=== PATIENT | male | born 1940 | race Hispanic/Latino ===

== ENCOUNTER 2016-09-02 07:46 | Day surgery (SDC) | payer MEDICARE ==
--- NOTE | 2016-09-01 10:35 | Admit Criteria Form ---
Admission Criteria Documentation: AMBULATORY SURGERY EXCEPTION CRITERIA Ambulatory Surgery Exception Criteria ( Place 'X' for any and all applicable criteria): Surgery or procedure performed on ambulatory basis may require inpatient stay for[A] ANY ONE of the following(1)(2)(3)(4)(5)(6)(7)(8)(9): [X] I. A preoperative situation, condition, or finding that warrants inpatient stay as indicated by ANY ONE of the following: [] a) Inpatient care needed because of severity of a disease or condition rather than the surgery (eg, severe cardiac or respiratory disease, severe infection) (15) (16 ) (17) (18) [] b) Emergent procedure (eg, angioplasty for acute ischemia)(19) [] c) Complex surgical approach or situation as indicated by ANY ONE of the following(3): [] i) Open approach needed instead of usual endoscopic, transcatheter, or other less invasive procedure [] ii) Difficult approach because of previous operation [] iii) Airway monitoring required after open neck procedures(20)(21) [] iv) Large mass requiring unusually extensive dissection [] v) Additional complicating feature requiring inpatient care (eg, drain management)(22(23): [X] d) Major surgery in a pt with high anesthetic risk as indicated by ANY ONE of the following (2)(3)(5)(7)(8): [X] i) ASA risk class III or higher (severe systemic disease impairing function) [D] [] ii) Advanced age (eg, older than 85 years)(14)(24) [] iii) Symptomatic heart failure(25) [] iv) Symptomatic asthma or COPD(8)(21) [] v) Morbid obesity with hemodynamic or respiratory problems(20)( 21)(26)(27) [] vi) Obstructive sleep apnea(20)(21) [] vii) Former premature infants who are younger than 60 weeks [] viii) High risk for severe postoperative abnormalities (eg, severe postoperative hypocalcemia after parathyroidectomy for severe hyperparathyroidism)(27)( 28) [] ix) Unstable angina(25) [] e) Drug-related risk requiring inpatient stay as indicated by ANY ONE of the following(5)(10)(14)(32)(33) [] i) Procedure requires discontinuing drugs or other therapy (eg , antiarrhythmic medication, antiseizure medication), which necessitates inpatient observation or treatment.(18)(31) [] ii) Major surgery and high risk drug use as indicated by ANY ONE of the following: [] 1) Active abuse of cocaine or similar drug [] 2) Monoamine oxidase inhibitor use [] 3) Other drug identified as posing risk [] f) Inadequate outpatient care situation as indicated by ANY ONE of the following(5)(10)(14)(32)(33) [] i) Patient lives remote from medical facility and procedure has urgent complication potential, and temporary nearby residence cannot be arranged [] ii) Patient will have postprocedure incapacitation and inadequate assistance at home, or alternative level of care cannot be arranged. [] iii) Patient will have long general anesthesia or procedure side effect resolution time, and competent person to stay with patient on first postoperative night at home or alternative level of care cannot be arranged. []iv) Other inadequate outpatient situation that cannot be handled by other means [] II. A perioperative event, condition, or finding that warrants inpatient stay as indicated by ANY ONE of the following (1)(2)(3): [] a) Inadequate physiologic recovery: cardiovascular, respiratory, or hemodynamic status not normal or near preoperative baseline(18) [] b) Hemodynamic instability [] c) Patient not alert with near normal or baseline mental status [] d) Temperature not normal or as expected and not appropriate for outpatient treatment of condition [] e) Ambulatory or appropriate activity level status not yet achieved post procedure [E](34)(35)(36) [] f) Operative site not appropriate (eg, unexpected or excessive drainage or bleeding) [] g) Postoperative effects not resolved or adequately managed (eg, significant pain or vomiting not appropriate for outpatient or next level of care)(10)(12) [] h) Complicating features requiring inpatient care as indicated by ANY ONE of the following(37): [] i) Severe complications of procedure (eg, bowel injury, airway compromise, vascular injury,severe hemorrhage) [] ii) Extensive (eg, dissection far beyond usual scope of procedure ) or prolonged (eg, 120 minutes beyond usual) surgery needed requiring inpatient postoperative care [] iii) Conversion to an open or complex procedure that requires inpatient care (eg, open vs laparoscopic cholecystectomy, abdominal vs vaginal hysterectomy)(38) [] iv) Comorbid condition or test result identified during or post procedure that requires inpatient care (7) [] v) Malignant hyperthermia(30) [] vi) Other complicating feature requiring inpatient care(22)(23) Inpatient stay may be needed until ALL of the following are present (1)(2)(3)(4) (5)(6)(10)(14)(33)(40): []a) Physiologic recovery: cardiovascular, respiratory, and hemodynamic status normal or near preoperative baseline []b) Hemodynamic stability []c) Patient alert, with near normal or baseline mental status []d) Temperature appropriate: patient afebrile or temperature appropriate for outpt treatment of condition []e) Activity level appropriate: ambulatory or appropriate activity level post procedure []f) Operative site appropriate as indicated by ALL of the following: []i) Site dry or with expected drainage []ii) Any blood noted is as expected for procedure. []g) Postoperative effects resolved or managed as indicated by ALL of the following: []i) Pain management appropriate for outpatient (or next level of) care(10) []ii) Minimal nausea and vomiting: if present, successfully treated with oral medication(12) []iii) Headache, dizziness, or drowsiness (if present) are mild. []h) Voiding status acceptable as indicated by ANY ONE of the following: []i) Voiding spontaneously []ii) No voiding but instructions given for follow-up in 6 to 8 hours []iii) Urinary catheter in place, and instructions given for follow-up []i) Complicating features requiring inpatient care manageable at a lower level of care(37) []j) Comorbid conditions manageable at a lower level of care(37) The original [employer] content created by [employer] has been revised. The portions of the content which have been revised are identified through the use of italic text or in bold, and [employer] has neither reviewed nor approved the modified material. All other unmodified content is copyright [employer]. Please see references footnoted in the original [employer] edition 2016
[~2016-09-02 07:46] MED LIST: DIPRIVAN 10 MG/ML IV ONE; SUBLIMAZE ONE
[2016-09-02] MEDS ORDERED: PEPCID PO NR (08:00)
[2016-09-02] MEDS ORDERED: NACL 0.9% 1000 ML 1,000 ML IV SCH (08:00)
[2016-09-02] MEDS ORDERED: DILAUDID IV PRN (08:22)
--- NOTE | 2016-09-02 08:22 | Anesthesia Consultation ---
Anesthesia Consult and Med Hx Date of service: 09/02/16 - Airway Anesthetic Teeth Evaluation: Dentures ROM Head & Neck: Adequate Mental/Hyoid Distance: Adequate Mallampati Class: Class II Intubation Access Assessment: Probably Good - Pulmonary Exam CTA: Yes - Cardiac Exam Cardiac Exam: RRR - Pre-Operative Health Status ASA Pre-Surgery Classification: ASA3 Proposed Anesthetic Plan: General - Pulmonary Hx Smoking: Yes (STOPPED X 60 YRS) Hx Sleep Apnea: No (DUNCAN PRE SCREEN HIGH RISK) - Cardiovascular System Hx Heart Attack/AMI: Yes (? 10 yrs ago) - Central Nervous System Hx Back Pain: Yes (FROM KIDNEY STONE)
--- NOTE | 2016-09-02 08:22 | Anesthesia Day of Surgery ---
Anesthesia Day of Surgery - Day of Surgery Patient Examined: Yes Patient H&P Reviewed: Yes Patient is NPO: Yes Beta Blockers: Yes
[2016-09-02] MEDS ORDERED: ANCEF/STERILE WATER 2 GM/20 ML IV NR (09:00)
[2016-09-02] MEDS ORDERED: PERCOCET 5/325 PO PRN (09:00)
[2016-09-02] MEDS ORDERED: ANCEF/STERILE WATER 2 GM/20 ML 2 GM/20 ML SYRINGE IV NR (09:30)
[2016-09-02] MEDS ORDERED: DECADRON ONE (09:50)
[2016-09-02] MEDS ORDERED: ZOFRAN ONE (09:50)
[2016-09-02] MEDS ORDERED: XYLOCAINE MPF 2% ONE (09:50)
[2016-09-02] MEDS ORDERED: ROBINUL ONE (10:06)
[2016-09-02] MEDS ORDERED: NACL 0.9% 100 ML ONE (10:06)
[2016-09-02] MEDS ORDERED: NEO SYNEPHRINE ONE (10:06)
[2016-09-02] MEDS ORDERED: WATER FOR IRRIG STERILE IR ONE (10:26)
[2016-09-02] MEDS ORDERED: OMNIPAQUE 300 MG/50 ML (CATH LAB) IV ONE (10:26)
[2016-09-02] MEDS ORDERED: GARAMYCIN ONE (10:28)
[2016-09-02] MEDS ORDERED: NACL 0.9% 1000 ML 1,000 ML ONE (10:37)
--- NOTE | 2016-09-02 10:53 | Post Anesthesia Evaluation ---
- Post Anesthesia Evaluation Patient Participated: Yes Airway Patent: Yes Stable Respiratory Function: Yes Nausea/Vomiting: No Temp > 96.8F: Yes Pain Manageable: Yes Adequeate Hydration: Yes Anesthesia Complications: No Block Receding Appropriately: Not Applicable Patient on Ventilator: No
--- NOTE | 2016-09-02 11:57 | Post Operative Note ---
Date of procedure: 09/02/16 Pre-op diagnosis: L renal // ureterqal stones Post-op diagnosis: same Findings: hydro Procedure: cysto L rpg j stent cancelled litho Anesthesia: GETA Surgeon: ANTONIO MORAES Estimated blood loss: none Pathology: list (c an s) Specimen disposition: to lab Condition: stable Disposition: PACU
--- NOTE | 2016-09-02 11:58 | Discharge Summary ---
Short Stay Discharge Plan Activity: other (no straining ) Weight Bearing Status: Full Weight Bearing Diet: low fat, low cholesterol, low salt Special Instructions: other (inc fluids ) Durable Medical Equipment Needed Upon Discharge: other (has j stent ) Follow up with: JUANA GRIFFIN JR, MD [Primary Care Provider] - 7 Days ANTONIO MORAES MD [Staff Physician] - 7 Days
[2016-09-02 13:34] VITALS: BP 151/77
--- NOTE | 2016-09-02 14:16 | Operative Report ---
PREOPERATIVE DIAGNOSES: 1. Renal cyst. 2. Large renal stones obstructing left. 3. Enlarged prostate. POSTOPERATIVE DIAGNOSES: 1. Renal cyst. 2. Large renal stones obstructing left. 3. Enlarged prostate. PROCEDURE: Cystoscopy with left retrograde, left double-J stent and collection of left renal pelvic urine for culture. SURGEON: Blair Coleman MD ANESTHESIA: General. FINDINGS: The gentleman with large stones left kidney, multiple renal cysts, who now presents for treatment. All risks and complications were discussed with him and his daughter. DESCRIPTION OF PROCEDURE: The patient was brought to lithotripsy suite, placed on the operating table. Stones could not be localized. This could be because of their consistency, they may have mostly uric acid. The patient was then placed in the lithotomy position and he had mild benign prostatic hypertrophy and some narrowing of the urethra, which was easily bypassed with the scope. There was 2+ trabeculation. Retrograde showed a very narrowed left orifice with stones. I suspect that the UPJ which were radiolucent and in the lower pole calyx. A Glidewire coiled up in the kidney and we placed 6-[place] ____. When we placed the first Glidewire, there was purulent material from the left side, so we decided to abandon the lithotripsy. There was moderate hydronephrosis and a good diuresis. Open-ended catheter was placed for culture. The patient tolerated the procedure well. We placed a double-J stent in good position. Family notified. Followup for possible ureteroscopy and possible alkalinization. I explained this in detail to the daughter. JOB# [id number] CONNIE/RL
== END 2016-09-02 14:00 | disposition home or self-care (01) ==
LOC: OR 07:46
PROVIDERS: ATTEND Urology
DX: N20.0 Calculus of kidney (principal); N28.1 Cyst of kidney, acquired; N40.0 Benign prostatic hyperplasia without lower urinary tract symptoms; N35.9 Urethral stricture, unspecified; N32.89 Other specified disorders of bladder; N13.30 Unspecified hydronephrosis; I10 Essential (primary) hypertension; G47.33 Obstructive sleep apnea (adult) (pediatric); I25.2 Old myocardial infarction; Z87.891 Personal history of nicotine dependence; Z85.46 Personal history of malignant neoplasm of prostate; Z79.899 Other long term (current) drug therapy
CPT/HCPCS: 52332; 82962; 87086; 93005; 93010; A4217; C1758; C1769; C2617; J0690; J1100; J1580; J2370; J2405; J2704; J3010; J7030; Q9967

== ENCOUNTER 2016-09-29 11:14 | Day surgery (SDC) | payer MEDICARE ==
[~2016-09-29 11:14] MED LIST changes: +ANCEF/STERILE WATER 2 GM/20 ML 2 GM/20 ML SYRINGE IV NR; -DIPRIVAN 10 MG/ML IV ONE; -SUBLIMAZE ONE
[2016-09-29] MEDS ORDERED: NACL 0.9% 1000 ML 1,000 ML ONE (12:04)
[2016-09-29] MEDS ORDERED: NACL BACTERIOSTATIC INFILTRATI ONE (12:11)
--- NOTE | 2016-09-29 12:15 | Anesthesia Consultation ---
Anesthesia Consult and Med Hx Date of service: 09/29/16 - Airway Anesthetic Teeth Evaluation: Edentulous ROM Head & Neck: Adequate Mental/Hyoid Distance: Adequate Mallampati Class: Class II Intubation Access Assessment: Probably Good - Pulmonary Exam CTA: Yes - Cardiac Exam Cardiac Exam: RRR - Pre-Operative Health Status ASA Pre-Surgery Classification: ASA3 Proposed Anesthetic Plan: General - Pulmonary Hx Smoking: Yes (STOPPED X 60 YRS) Hx Sleep Apnea: No (DUNCAN PRE SCREEN HIGH RISK) - Cardiovascular System Hx Heart Attack/AMI: Yes (? 10 yrs ago, S/P CABG) Hx Angina: No (Patient is active with no chest pain or tightness) - Central Nervous System Hx Back Pain: Yes (FROM KIDNEY STONE) - Endocrine Hx Insulin Dependent Diabetes: Yes - Additional Comments Anesthesia Medical History Comments: Recently had medical insurance coder extend his check up interval from 3 months to 1 year
--- NOTE | 2016-09-29 12:15 | Anesthesia Day of Surgery ---
Anesthesia Day of Surgery - Day of Surgery Patient Examined: Yes Patient H&P Reviewed: Yes Patient is NPO: Yes Beta Blockers: No (did not take this am)
[2016-09-29] MEDS ORDERED: LOPRESSOR IV ONE (12:16)
[2016-09-29] MEDS ORDERED: XYLOCAINE MPF 2% ONE (12:30)
[2016-09-29] MEDS ORDERED: SUBLIMAZE ONE (12:55)
[2016-09-29] MEDS ORDERED: DIPRIVAN 10 MG/ML IV ONE (12:55)
[2016-09-29] MEDS ORDERED: NACL 0.9% 1000 ML 1,000 ML IV SCH (13:00)
[2016-09-29] MEDS ORDERED: PEPCID PO NR (13:00)
[2016-09-29] MEDS ORDERED: VERSED IV NR (13:00)
--- NOTE | 2016-09-29 13:20 | Post Operative Note ---
Date of procedure: 09/29/16 Pre-op diagnosis: ureteral stones Post-op diagnosis: same Findings: As above Procedure: Cystoscopy left flexible ureteroscopy Op note Preoperative diagnosis left ureteral and renal stones Postoperative diagnosis the same procedure cystoscopy stent exchange left ureteroscopy left retrograde left rigid and flexible ureteroscopy stone extraction left nephroscopy laser of stones double-J stent Surgeon Dr. Janee Clifford Gen. Findings as above Procedure This was brought to the operating room placed on the operating table. Following the induction of general anesthesia placed in lithotomy position prepped and draped in usual sterile fashion The stent was revealed and removed over a wire in the kidney We tried flexible ureteroscopy but we saw prominent stones in the ureter could not get tested. We then used the rigid ureteroscope and laser to stone and remove multiple fragments to be given to the patient's family. At this point the ureter was quite narrow we used the access sheath to the mid ureter and was able to pass the flexible scope to the kidney. Large stones were seen which were yellow not visualized on the radiographic studies so could not be done with ESWL At this point the stones were followed into the lower and mid calyces and fragmented into multiple pieces with the 200 fiber laser Patient of procedure well a 7 Romanian 24 cm double-J was replaced and was brought to recovery room in stable condition without the string minimal blood loss Anesthesia: RAVINDERA Surgeon: ANTONIO MORAES Estimated blood loss: minimal Pathology: none Condition: stable Disposition: PACU
--- NOTE | 2016-09-29 13:21 | Discharge Summary ---
Short Stay Discharge Plan Activity: other (no straining) Weight Bearing Status: Full Weight Bearing Diet: low cholesterol, low salt Special Instructions: other (increase fluids) Durable Medical Equipment Needed Upon Discharge: other (patient has double-J stent needs follow-up) Follow up with: JUANA GRIFFIN JR, MD [Primary Care Provider] - 7 Days ANTONIO MORAES MD [Staff Physician] - 7 Days
[2016-09-29] MEDS ORDERED: ePHEDrine SULFATE ONE (13:42)
[2016-09-29] MEDS ORDERED: ZOFRAN ONE (13:50)
[2016-09-29] MEDS ORDERED: DECADRON ONE (13:50)
[2016-09-29 17:13] VITALS: BP 156/90
--- NOTE | 2016-09-30 09:05 | Fluoroscopy Report ---
FLUOROSCOPY RETROGRADE UROGRAPHY History: Left ureteral stones. Findings: No comparison. Fluoroscopy was provided by radiology during retrograde urography by Dr. Coleman. Data Lead film demonstrates a left ureteral stent which is in good position and densities overlying the course of the left ureter consistent with ureteral stones. Left ureteroscopy, laser and grasper was used to remove the left ureteral stones. The left ureteral stent was exchanged which is in good position on the final image. Please correlate with the procedural report. Impression: Removal of left ureteral stones. Left ureteral stent exchange.
== END 2016-09-29 17:05 | disposition home or self-care (01) ==
LOC: OR 11:14
PROVIDERS: ATTEND Urology
DX: N20.2 Calculus of kidney with calculus of ureter (principal); I10 Essential (primary) hypertension; E11.9 Type 2 diabetes mellitus without complications; I25.10 Atherosclerotic heart disease of native coronary artery without angina pectoris; Z79.899 Other long term (current) drug therapy; Z85.46 Personal history of malignant neoplasm of prostate; Z87.891 Personal history of nicotine dependence; Z95.1 Presence of aortocoronary bypass graft
CPT/HCPCS: 52356; 74420; 82962; C1726; C1758; C1769; C2617; J0690; J1100; J2250; J2405; J2704; J3010; J7030; Q9967

== ENCOUNTER 2019-02-19 06:49 | Day surgery (SDC) | payer MEDICARE ==
[2019-02-19] MEDS ORDERED: ONDANSETRON 4 MG/2 ML INJ IV PRN (09:10)
[2019-02-19] MEDS ORDERED: LACTATED RINGERS 1,000 ML ONE (09:10)
[2019-02-19] MEDS ORDERED: fentaNYL 100 MCG/2 ML INJ IV PRN (09:10)
[2019-02-19] MEDS ORDERED: PROPOFOL 200 MG/20 ML VIAL IV ONE (09:11)
[2019-02-19] MEDS ORDERED: HYDROmorphone 1 MG/1 ML INJ ONE (09:11)
--- NOTE | 2019-02-19 09:12 | Anesthesia Day of Surgery ---
Anesthesia Day of Surgery - Day of Surgery Patient Examined: Yes Patient H&P Reviewed: Yes Patient is NPO: Yes
[2019-02-19] MEDS ORDERED: ceFAZolin/STERILE WATER 2 GM/20 ML SYRINGE IV NR (09:15)
--- NOTE | 2019-02-19 09:15 | Anesthesia Consultation ---
Anesthesia Consult and Med Hx Date of service: 02/19/19 - Airway Anesthetic Teeth Evaluation: Edentulous ROM Head & Neck: Adequate Mental/Hyoid Distance: Adequate Mallampati Class: Class II Intubation Access Assessment: Good - Pre-Operative Health Status ASA Pre-Surgery Classification: ASA3 Proposed Anesthetic Plan: General - Pulmonary Hx Smoking: Yes (STOPPED X 60 YRS) Hx Sleep Apnea: No (DUNCAN PRE SCREEN HIGH RISK) - Cardiovascular System Hx Hypertension: Yes Hx Heart Attack/AMI: Yes (? 10 yrs ago, S/P CABG) Hx Angina: No (Patient is active with no chest pain or tightness) Hx Valvular Heart Disease: Yes (AVR) Hx Peripheral Vascular Disease: Yes (Had CEA 7 weeks ago. +Cardiac clearance (ECHO, NST)) - Central Nervous System Hx Back Pain: Yes (FROM KIDNEY STONE) Hx Psychiatric Problems: No - Gastrointestinal Hx Gastroesophageal Reflux Disease: Yes - Endocrine Hx Insulin Dependent Diabetes: Yes - Hematic Hx Anemia: No - Other Systems Hx Alcohol Use: No Hx Substance Use: No Hx Cancer: Yes (Prostate)
[2019-02-19] MEDS ORDERED: IOHEXOL 300 MG/ML 50ML IV ONE (09:45)
[2019-02-19] MEDS ORDERED: LACTATED RINGERS 1,000 ML IV SCH (10:00)
--- NOTE | 2019-02-19 10:36 | Operative Report ---
PREOPERATIVE DIAGNOSES: Gross hematuria, previous radiation for prostate. POSTOPERATIVE DIAGNOSIS: Two papillary bladder tumors. PROCEDURE: Cystoscopy, transurethral resection of bladder tumor. SURGEON: Dr. Coleman. ANESTHESIA: General. FINDINGS: This is a gentleman who presented with gross hematuria. CT was unremarkable for any significant pathology, but he continues to bleed. He was on blood thinners. He had to have a carotid surgery. He now presents for treatment. DESCRIPTION OF PROCEDURE: The patient was brought to the operating room and placed on the operating table. Following induction of anesthesia, he was placed in lithotomy position, prepped and draped in usual sterile fashion. 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 Once we were able to get into the bladder, the urethral epithelium was blanched. Bladder neck was open. We got into the bladder and there were two tumors, one on the right posterior lateral wall and one at the dome. Retrograde showed good filling and good drainage. The tumors were extracted. The smaller one was grabbed with a rigid biopsy instrument and then deeper biopsies were taken. The larger one was resected. The patient tolerated the procedure well. We did see muscle fibers. There were no complications. The area was cauterized. A 22 [place] catheter was placed, brought to recovery in stable condition. JOB# [id number] CONNIE/RL
[2019-02-19] MEDS ORDERED: LIDOCAINE MPF (2%) 20 MG/1 ML VIAL 5 ML ONE (10:39)
--- NOTE | 2019-02-19 10:43 | Post Operative Note ---
Date of procedure: 02/19/19 Pre-op diagnosis: hematuria Post-op diagnosis: same Findings: bladder tumors Procedure: cysto turbt rpgs Anesthesia: GETA Surgeon: ANTONIO MORAES Estimated blood loss: minimal Pathology: list (bladder) Specimen disposition: to lab Condition: stable Disposition: PACU
--- NOTE | 2019-02-19 10:45 | Discharge Summary ---
Short Stay Discharge Plan Activity: other (no straining ) Weight Bearing Status: Full Weight Bearing Diet: low fat, low cholesterol Special Instructions: other (inc fluids ) Durable Medical Equipment Needed Upon Discharge: other (blackmon ) Follow up with: JUANA GRIFFIN JR, MD [Primary Care Provider] - 7 Days ANTONIO MORAES MD [Staff Physician] - 7 Days
--- NOTE | 2019-02-19 11:03 | Fluoroscopy Report ---
Retrograde ureterography. 02/19/2019. HISTORY: Gross hematuria. FINDINGS: Retrograde injection of the right renal collecting system. A filling defect at the UVJ is n onobstructing. This may represent an injected air bubble. Mild irregularity is seen at the distal ure ter. No significant obstruction. Injection of the left collecting system is unremarkable. Fluoroscopy time: 30 seconds. 6 fluoroscopic images were obtained. Signer Name: Guille Santos MD Signed: 02/19/2019 10:59 AM Workstation Name: [id number]
[2019-02-19 11:13] VITALS: BP 130/62
--- NOTE | 2019-02-19 12:11 | Post Anesthesia Evaluation ---
- Post Anesthesia Evaluation Patient Participated: Yes Airway Patent: Yes Stable Respiratory Function: Yes Nausea/Vomiting: No Temp > 96.8F: Yes Pain Manageable: Yes Adequeate Hydration: Yes Anesthesia Complications: No
== END 2019-02-19 06:50 | disposition home or self-care (01) ==
LOC: OR 06:49
PROVIDERS: ATTEND Urology
DX: R31.0 Gross hematuria (principal); N35.919 Unspecified urethral stricture, male, unspecified site; E11.9 Type 2 diabetes mellitus without complications; I10 Essential (primary) hypertension; I25.810 Atherosclerosis of coronary artery bypass graft(s) without angina pectoris; E78.2 Mixed hyperlipidemia; I65.23 Occlusion and stenosis of bilateral carotid arteries; Z79.899 Other long term (current) drug therapy; Z79.84 Long term (current) use of oral hypoglycemic drugs; Z79.4 Long term (current) use of insulin; Z95.2 Presence of prosthetic heart valve; Z98.41 Cataract extraction status, right eye; Z98.42 Cataract extraction status, left eye; Z95.1 Presence of aortocoronary bypass graft; Z79.82 Long term (current) use of aspirin; Z87.891 Personal history of nicotine dependence
CPT/HCPCS: 52224; 74420; 82962; 88305; C1758; J1170; J2704; J7120; Q9967

== ENCOUNTER 2019-06-04 05:58 | Day surgery (SDC) | payer MEDICARE ==
[~2019-06-04 05:58] MED LIST changes: -ANCEF/STERILE WATER 2 GM/20 ML 2 GM/20 ML SYRINGE IV NR; +LACTATED RINGERS 1,000 ML IV SCH; +WATER FOR IRRIG STERILE 1,500 ML BOTTLE IR ONE; +WATER FOR IRRIG STERILE 2000 ML IR ONE
[2019-06-04] MEDS ORDERED: BACTERIOSTATIC SODIUM CHLORIDE 0.9% 30 ML VIAL INFILTRATI ONE (06:13)
[2019-06-04] MEDS ORDERED: fentaNYL 100 MCG/2 ML INJ ONE (07:17)
[2019-06-04] MEDS ORDERED: LIDOCAINE MPF (2%) 20 MG/1 ML VIAL 5 ML ONE (07:17)
[2019-06-04] MEDS ORDERED: propofoL 200 MG/20 ML VIAL IV ONE (07:18)
[2019-06-04] MEDS ORDERED: ONDANSETRON 4 MG/2 ML INJ ONE (07:25)
--- NOTE | 2019-06-04 07:29 | Anesthesia Consultation ---
Anesthesia Consult and Med Hx Date of service: 06/04/19 - Airway Anesthetic Teeth Evaluation: Edentulous ROM Head & Neck: Adequate Mental/Hyoid Distance: Adequate Mallampati Class: Class II Intubation Access Assessment: Probably Good (unable to access previous anes record for review) - Pulmonary Exam CTA: Yes - Cardiac Exam Cardiac Exam: RRR - Pre-Operative Health Status ASA Pre-Surgery Classification: ASA3 Proposed Anesthetic Plan: General - Pulmonary Hx Smoking: Yes (STOPPED X 60 YRS) Hx Respiratory Symptoms: No Hx Sleep Apnea: No (DUNCAN PRE SCREEN HIGH RISK) - Cardiovascular System Hx Hypertension: Yes (took metoprolol and enalapril this mornign) Hx Coronary Artery Disease: Yes (s/p CABG >10yrs ago) Hx Angina: No Hx Percutaneous Transluminal Coronary Angioplasty (PTCA): Yes (>10 yrs ago) Hx Cardia Arrhythmia: No Hx Valvular Heart Disease: Yes (remote hx AVR) Hx Peripheral Vascular Disease: Yes - Central Nervous System CVA: No - Gastrointestinal Hx Gastroesophageal Reflux Disease: Yes (diet controlled) - Endocrine Hx Renal Disease: No Hx Liver Disease: No Hx Insulin Dependent Diabetes: Yes Hx Thyroid Disease: No - Other Systems Hx Cancer: Yes (hx bladder ca) Hx Obesity: No - Additional Comments Anesthesia Medical History Comments: No hx anesthetic complications.
--- NOTE | 2019-06-04 07:29 | Anesthesia Day of Surgery ---
Anesthesia Day of Surgery - Day of Surgery Patient Examined: Yes Patient H&P Reviewed: Yes Patient is NPO: Yes Beta Blockers: Yes (metoprolol this morning)
[2019-06-04] MEDS ORDERED: ceFAZolin/STERILE WATER 2 GM/20 ML SYRINGE IV NR (07:30)
[2019-06-04] MEDS ORDERED: PHENYLEPHRINE/NS 1,000 MCG/10 ML SYRINGE (OR USE) IV ONE (08:00)
[2019-06-04] MEDS ORDERED: WATER FOR IRRIG STERILE 1,500 ML BOTTLE IR ONE (08:29)
[2019-06-04] MEDS ORDERED: WATER FOR IRRIG STERILE 2000 ML IR ONE (08:29)
[2019-06-04] MEDS: fentaNYL 100 MCG/2 ML INJ IV PRN ×2 (10:09→10:20)
--- NOTE | 2019-06-04 10:15 | Discharge Summary ---
Short Stay Discharge Plan Activity: other (no straining ) Weight Bearing Status: Full Weight Bearing Diet: low fat, low cholesterol, low salt Special Instructions: other (blackmon care ) Durable Medical Equipment Needed Upon Discharge: other (catheter) Follow up with: JUANA GRIFFIN JR, MD [Primary Care Provider] - 7 Days ANTONIO MORAES MD [Staff Physician] - 7 Days
--- NOTE | 2019-06-04 10:15 | Post Operative Note ---
Date of procedure: 06/04/19 Pre-op diagnosis: tcc bladder Post-op diagnosis: same Findings: tcc Procedure: rec lesions Anesthesia: GETA Surgeon: ANTONIO MORAES Estimated blood loss: none Pathology: list (bladder) Specimen disposition: to lab Condition: stable Disposition: PACU
[2019-06-04 11:38] VITALS: BP 130/77
--- NOTE | 2019-06-04 12:28 | Operative Report ---
PREOPERATIVE DIAGNOSIS: The patient has recurrent bladder cancer. POSTOPERATIVE DIAGNOSIS: The patient has recurrent bladder cancer. PROCEDURE: Resection of 2 small bladder tumors. SURGEON: Dr. Coleman. ANESTHESIA: General. FINDINGS: This is a gentleman with history of papillary bladder tumors and intermittent hematuria. He now presents for treatment. PROCEDURE: The patient was brought to the operating room and placed on the operating table. Following induction of anesthesia, placed in lithotomy position, prepped and draped in usual sterile fashion. Cystourethroscopy showed a tumor, probably a 9 mm posterior wall, which was extracted and cauterized. At the bladder neck, there was a tumor at the 5 o'clock position, elevated, looked a little papillary. This was resected with the 24 resectoscope. The patient tolerated the procedure well. No significant bleeding. Area was cauterized. A 22-coude catheter was placed, brought to recovery in stable condition. JOB# [id number] CONNIE/RL
== END 2019-06-04 05:59 | disposition home or self-care (01) ==
LOC: OR 05:58
PROVIDERS: ATTEND Urology
DX: C67.4 Malignant neoplasm of posterior wall of bladder (principal); R31.9 Hematuria, unspecified; I25.10 Atherosclerotic heart disease of native coronary artery without angina pectoris; I73.9 Peripheral vascular disease, unspecified; E78.00 Pure hypercholesterolemia, unspecified; I10 Essential (primary) hypertension; K21.9 Gastro-esophageal reflux disease without esophagitis; M19.90 Unspecified osteoarthritis, unspecified site; E11.51 Type 2 diabetes mellitus with diabetic peripheral angiopathy without gangrene; Z90.49 Acquired absence of other specified parts of digestive tract; Z85.46 Personal history of malignant neoplasm of prostate; Z87.442 Personal history of urinary calculi; Z98.890 Other specified postprocedural states; Z87.891 Personal history of nicotine dependence; Z79.899 Other long term (current) drug therapy; Z79.82 Long term (current) use of aspirin; Z79.84 Long term (current) use of oral hypoglycemic drugs; Z79.4 Long term (current) use of insulin; Z95.1 Presence of aortocoronary bypass graft; Z95.2 Presence of prosthetic heart valve; Z98.49 Cataract extraction status, unspecified eye
CPT/HCPCS: 52234; 82962; 88305; A4217; J0690; J2370; J2704; J3010; J7120; J2405

== ENCOUNTER 2019-10-01 06:04 | Day surgery (SDC) | payer MEDICARE ==
[2019-09-28 10:47] LABS: Mean Corpuscular HGB Conc 30 % (32-34); Mean Corpuscular Volume 73 fl (84-94); Platelet Count 256 K/mm3 (140-440); Red Blood Count 4.04 M/mm3 (3.65-5.03)
[2019-09-28 10:54] LABS: Albumin 4.2 g/dL (3.9-5); Calcium 9.8 mg/dL (8.4-10.2)
[2019-09-28 11:14] LABS: Hematocrit 29.3 % (35.5-45.6); Hemoglobin 8.8 gm/dl (11.8-15.2); Red Cell Distribution Width 23.1 % (13.2-15.2)
[~2019-10-01 06:04] MED LIST changes: -WATER FOR IRRIG STERILE 1,500 ML BOTTLE IR ONE; -WATER FOR IRRIG STERILE 2000 ML IR ONE
[2019-10-01] MEDS ORDERED: BACTERIOSTATIC SODIUM CHLORIDE 0.9% 30 ML VIAL INFILTRATI ONE (06:46)
--- NOTE | 2019-10-01 07:33 | Anesthesia Consultation ---
Anesthesia Consult and Med Hx Date of service: 10/01/19 - Airway Anesthetic Teeth Evaluation: Dentures (upper and lower), Edentulous ROM Head & Neck: Adequate Mental/Hyoid Distance: Adequate Mallampati Class: Class III Intubation Access Assessment: Possibly Difficult - Pre-Operative Health Status ASA Pre-Surgery Classification: ASA3 Proposed Anesthetic Plan: General - Pulmonary Hx Smoking: Yes (STOPPED X 60 YRS) Hx Respiratory Symptoms: No Hx Sleep Apnea: No (DUNCAN PRE SCREEN HIGH RISK ) - Cardiovascular System Hx Hypertension: Yes Hx Coronary Artery Disease: Yes (CABG x3 (2013)) Hx Heart Attack/AMI: No Hx Angina: No Hx Percutaneous Transluminal Coronary Angioplasty (PTCA): Yes (>10 yrs ago) Hx Cardia Arrhythmia: No Hx Valvular Heart Disease: Yes (Aortic valve replacement (2013)) Hx Peripheral Vascular Disease: Yes - Central Nervous System CVA: No Hx Back Pain: Yes (FROM KIDNEY STONE) Hx Psychiatric Problems: No - Gastrointestinal Hx Gastroesophageal Reflux Disease: Yes (diet controlled) - Endocrine Hx Renal Disease: Yes (kidney stones, h/o bladder CA, prostate CA) Hx Liver Disease: No Hx Insulin Dependent Diabetes: Yes Hx Thyroid Disease: No - Hematic Hx Anemia: Yes - Other Systems Hx Alcohol Use: No Hx Substance Use: No Hx Cancer: Yes (hx bladder ca, Prostate CA (2008) ) Hx Obesity: No
--- NOTE | 2019-10-01 07:33 | Anesthesia Day of Surgery ---
Anesthesia Day of Surgery - Day of Surgery Patient Examined: Yes Patient H&P Reviewed: Yes Patient is NPO: Yes
[2019-10-01] MEDS ORDERED: fentaNYL 100 MCG/2 ML INJ IV PRN (07:39)
[2019-10-01] MEDS ORDERED: ePHEDrine SULFATE 50 MG/1 ML INJ ONE ×2 (07:40→07:41)
[2019-10-01] MEDS ORDERED: propofoL 200 MG/20 ML VIAL IV ONE (07:43)
[2019-10-01] MEDS ORDERED: fentaNYL 100 MCG/2 ML INJ ONE (07:43)
[2019-10-01] MEDS ORDERED: PHENYLEPHRINE/NS 1,000 MCG/10 ML SYRINGE (OR USE) IV ONE (07:47)
[2019-10-01] MEDS ORDERED: ONDANSETRON 4 MG/2 ML INJ ONE (07:47)
[2019-10-01] MEDS ORDERED: dexAMETHasone 20 MG/5 ML VIAL ONE (07:47)
[2019-10-01] MEDS ORDERED: GLYCOPYRROLATE 0.4 MG/2 ML INJ ONE (07:47)
[2019-10-01 07:55] LABS: Alanine Aminotransferase 12 units/L (7-56); Albumin 3.8 g/dL (3.9-5); BUN/Creatinine Ratio 25; Blood Urea Nitrogen 33 mg/dL (9-20); Calcium 9.2 mg/dL (8.4-10.2); Hemolysis Index 3
[2019-10-01] MEDS ORDERED: LIDOCAINE MPF (2%) 20 MG/1 ML VIAL 5 ML ONE (08:00)
[2019-10-01] MEDS ORDERED: GENTAMICIN 40 MG/ML VIAL 2 ML ONE (08:40)
[2019-10-01] MEDS ORDERED: WATER FOR IRRIG STERILE 1,500 ML BOTTLE IR ONE (08:57)
[2019-10-01] MEDS ORDERED: WATER FOR IRRIG STERILE 2000 ML IR ONE (08:57)
--- NOTE | 2019-10-01 09:19 | Operative Report ---
PREOPERATIVE DIAGNOSIS: Recurrent bladder tumors. POSTOPERATIVE DIAGNOSIS: Recurrent bladder tumors. PROCEDURE: Cystoscopy, transurethral resection of bladder tumors and excision of bladder tumors fulguration. SURGEON: Dr. Coleman. ANESTHESIA: General. DESCRIPTION OF PROCEDURE: This is a gentleman with recurrent tumors. He had two very tiny tumors posterior wall separate about 4 cm apart. These were very small, measuring about 8 mm each. These were excised. At the bladder neck, there was some papillary areas which were resected. The patient tolerated the procedure well. Specimen sent separately to pathology. A random posterior wall biopsy was also done. The patient tolerated the procedure well and brought to recovery room with 22 coude urine clear in stable condition. JOB# [id number] CONNIE/RL
--- NOTE | 2019-10-01 09:51 | Discharge Summary ---
Short Stay Discharge Plan Activity: other (no straining ) Weight Bearing Status: Full Weight Bearing Diet: low fat, low cholesterol, low salt Special Instructions: other (inc fluids ) Durable Medical Equipment Needed Upon Discharge: other (teach blackmon care ) Follow up with: JUANA GRIFFIN JR, MD [Primary Care Provider] - 7 Days ANTONIO MORAES MD [Staff Physician] - 3 Days Forms: Outpatient Surgery DC Inst.
--- NOTE | 2019-10-01 09:51 | Post Operative Note ---
Date of procedure: 10/01/19 Pre-op diagnosis: bladder tumor Post-op diagnosis: same Findings: small lesions Procedure: cysto turbt bx Anesthesia: GETA Surgeon: ANTONIO MORAES Estimated blood loss: minimal Pathology: list (bladder) Specimen disposition: to lab Condition: stable Disposition: PACU
[2019-10-01] MEDS ORDERED: ACETAMINOPHEN 325 MG TAB PO ONE (11:00)
[2019-10-01 11:24] VITALS: BP 138/75
== END 2019-10-01 11:15 | disposition home or self-care (01) ==
LOC: OR 06:04
PROVIDERS: ATTEND Urology
DX: C67.4 Malignant neoplasm of posterior wall of bladder (principal); C67.5 Malignant neoplasm of bladder neck; Z11.59 Encounter for screening for other viral diseases; I25.10 Atherosclerotic heart disease of native coronary artery without angina pectoris; I73.9 Peripheral vascular disease, unspecified; E78.00 Pure hypercholesterolemia, unspecified; I10 Essential (primary) hypertension; K21.9 Gastro-esophageal reflux disease without esophagitis; E11.51 Type 2 diabetes mellitus with diabetic peripheral angiopathy without gangrene; M19.90 Unspecified osteoarthritis, unspecified site; Z98.890 Other specified postprocedural states; Z98.49 Cataract extraction status, unspecified eye; Z95.1 Presence of aortocoronary bypass graft; Z95.4 Presence of other heart-valve replacement; Z90.49 Acquired absence of other specified parts of digestive tract; Z85.46 Personal history of malignant neoplasm of prostate; Z87.442 Personal history of urinary calculi; Z86.2 Personal history of diseases of the blood and blood-forming organs and certain disorders involving the immune mechanism
CPT/HCPCS: 36415; 52204; 52234; 80053; 82962; 85027; 86850; 86900; 86901; 88305; A4217; J1100; J1580; J2370; J2405; J2704; J3010; J7120; U0003

== ENCOUNTER 2020-03-17 06:06 | Day surgery (SDC) | payer MEDICARE ==
[2020-03-12 12:57] LABS: Hematocrit 30.6 % (35.5-45.6); Hemoglobin 9.4 gm/dl (11.8-15.2); Mean Corpuscular HGB Conc 31 % (32-34); Mean Corpuscular Volume 77 fl (84-94); Platelet Count 260 K/mm3 (140-440); Red Blood Count 3.98 M/mm3 (3.65-5.03); Red Cell Distribution Width 19.5 % (13.2-15.2)
[2020-03-12 13:15] LABS: Albumin 3.9 g/dL (3.9-5); Calcium 9.2 mg/dL (8.4-10.2)
--- NOTE | 2020-03-17 07:07 | Anesthesia Consultation ---
Anesthesia Consult and Med Hx Date of service: 03/17/20 - Airway Anesthetic Teeth Evaluation: Good ROM Head & Neck: Adequate Mental/Hyoid Distance: Adequate Mallampati Class: Class II Intubation Access Assessment: Good - Pulmonary Exam CTA: Yes - Cardiac Exam Cardiac Exam: RRR - Pre-Operative Health Status ASA Pre-Surgery Classification: ASA3 Proposed Anesthetic Plan: General - Pulmonary Hx Smoking: Yes (STOPPED X 60 YRS) Hx Respiratory Symptoms: No Hx Sleep Apnea: No (DUNCAN PRE SCREEN HIGH RISK ) - Cardiovascular System Hx Hypertension: Yes Hx Coronary Artery Disease: Yes (CABG x3 (2013), L CEA 6 months ago. R CEA last year) Hx Heart Attack/AMI: No Hx Angina: No Hx Percutaneous Transluminal Coronary Angioplasty (PTCA): Yes (>10 yrs ago) Hx Cardia Arrhythmia: No Hx Valvular Heart Disease: Yes (Aortic valve replacement (2013)) Hx Peripheral Vascular Disease: Yes (VARICOSITIES OF LEGS) - Central Nervous System CVA: No Hx Back Pain: Yes Hx Psychiatric Problems: No - Gastrointestinal Hx Gastroesophageal Reflux Disease: Yes (diet controlled) - Endocrine Hx Renal Disease: Yes (kidney stones, h/o bladder CA, prostate CA) Hx Liver Disease: No Hx Insulin Dependent Diabetes: Yes Hx Thyroid Disease: No - Hematic Hx Anemia: Yes - Other Systems Hx Alcohol Use: No Hx Substance Use: No Hx Cancer: Yes (hx bladder ca, Prostate CA (2008) ) Hx Obesity: No
--- NOTE | 2020-03-17 07:08 | Anesthesia Day of Surgery ---
Anesthesia Day of Surgery - Day of Surgery Patient Examined: Yes Patient H&P Reviewed: Yes Patient is NPO: Yes Beta Blockers: Yes Cardiac Clearance: Yes
[2020-03-17] MEDS ORDERED: SODIUM CHLORIDE 0.9% 1000 ML 1,000 ML IV SCH (07:15)
[2020-03-17] MEDS ORDERED: propofoL 200 MG/20 ML VIAL IV ONE (07:22)
[2020-03-17] MEDS ORDERED: ceFAZolin/STERILE WATER 2 GM/20 ML SYRINGE IV NR (07:43)
[2020-03-17] MEDS ORDERED: WATER FOR IRRIG STERILE 1,500 ML BOTTLE IR ONE (07:55)
[2020-03-17] MEDS ORDERED: SODIUM CHLORIDE 0.9% 1000 ML IV SOLN IR ONE (07:56)
[2020-03-17] MEDS ORDERED: fentaNYL 100 MCG/2 ML INJ ONE (08:23)
[2020-03-17] MEDS ORDERED: ONDANSETRON 4 MG/2 ML INJ ONE (08:23)
[2020-03-17] MEDS ORDERED: ePHEDrine SULFATE 50 MG/1 ML INJ ONE (08:28)
[2020-03-17] MEDS ORDERED: WATER FOR IRRIG STERILE 2000 ML IR ONE (08:47)
[2020-03-17] MEDS ORDERED: PHENYLEPHRINE/NS 1,000 MCG/10 ML SYRINGE (OR USE) IV ONE (09:05)
[2020-03-17] MEDS ORDERED: ROCURONIUM 50 MG/5 ML INJ IV ONE (09:05)
--- NOTE | 2020-03-17 09:32 | Post Operative Note ---
Date of procedure: 03/17/20 Pre-op diagnosis: bladder tumors Post-op diagnosis: same Findings: prv seeds Procedure: cysto remval tumors rpgs Anesthesia: GETA Surgeon: ANTONIO MORAES Estimated blood loss: minimal Pathology: list (bt's) Specimen disposition: to lab Condition: stable Disposition: PACU
--- NOTE | 2020-03-17 09:33 | Discharge Summary ---
Short Stay Discharge Plan Activity: other (no strainig ) Weight Bearing Status: Full Weight Bearing Diet: low fat, low cholesterol, low salt Special Instructions: other (teach blackmon care ) Follow up with: JUANA GRIFFIN JR, MD [Primary Care Provider] - 7 Days ANTONIO MORAES MD [Staff Physician] - 3 Days
--- NOTE | 2020-03-17 09:57 | Operative Report ---
PREOPERATIVE DIAGNOSES: Recurrent bladder cancer, history of prostate cancer, radiation seeds. POSTOPERATIVE DIAGNOSES: Recurrent bladder cancer, history of prostate cancer, radiation seeds. PROCEDURE: Cystoscopy, removal of bladder tumor and retrograde. SURGEON: Blair Coleman MD. ANESTHESIA: General. FINDINGS: This is a gentleman with bladder cancer. He has a history of prostate cancer as well with radiation. He now presents for treatment. DESCRIPTION OF PROCEDURE: The patient was brought to the operating table. Following the induction of anesthesia, placed in lithotomy position, prepped and draped in usual sterile fashion. Cystourethroscopy showed some scarring at the prostatic urethra where there were seeds placed. There were no seeds eroded in the urethra. Cystoscopy showed three tumors well up at the dome of the bladder anteriorly very difficult to access. We had to put him a little deeper and anesthesia and these tumors were excised. Each one was about 8-9 mm. The area was cauterized. One of them, which was small and we just cauterized it. The patient tolerated the procedure well. A 20-[place]oven[place] coude was placed. Retrograde showed good filling, good drainage, brought to recovery in stable condition. JOB# [id number] CONNIE/RL
--- NOTE | 2020-03-17 10:03 | Fluoroscopy Report ---
FLUOROSCOPY RETROGRADE UROGRAPHY HISTORY: TURBT, bladder cancer FINDINGS: Fluoroscopy was provided by radiology during retrograde urography by the urologist. There i s normal filling of both renal collecting systems. No filling defect or abnormal dilatation is identi fied. IMPRESSION: Unremarkable bilateral retrograde pyelograms Fluoroscopy time: 0.3 minutes Fluoroscopic images: 5 Signer Name: Angus Dueñas Jr, MD Signed: 03/17/2020 9:58 AM Workstation Name: [id number]
[2020-03-17] MEDS ORDERED: HYDROcodone/ACETAMINOPHEN 5-325 MG TAB PO PRN (10:25)
[2020-03-17 10:57] VITALS: BP 127/69
== END 2020-03-17 10:50 | disposition home or self-care (01) ==
LOC: OR 06:06
PROVIDERS: ATTEND Urology
DX: C67.1 Malignant neoplasm of dome of bladder (principal); I25.10 Atherosclerotic heart disease of native coronary artery without angina pectoris; E11.51 Type 2 diabetes mellitus with diabetic peripheral angiopathy without gangrene; E78.00 Pure hypercholesterolemia, unspecified; I10 Essential (primary) hypertension; K21.9 Gastro-esophageal reflux disease without esophagitis; M19.90 Unspecified osteoarthritis, unspecified site; Z20.828 Contact with and (suspected) exposure to other viral communicable diseases; Z79.899 Other long term (current) drug therapy; Z79.82 Long term (current) use of aspirin; Z79.4 Long term (current) use of insulin; Z87.891 Personal history of nicotine dependence; Z98.49 Cataract extraction status, unspecified eye; Z95.1 Presence of aortocoronary bypass graft; Z95.2 Presence of prosthetic heart valve; Z90.49 Acquired absence of other specified parts of digestive tract; Z85.46 Personal history of malignant neoplasm of prostate; Z87.442 Personal history of urinary calculi; Z98.890 Other specified postprocedural states; Z86.2 Personal history of diseases of the blood and blood-forming organs and certain disorders involving the immune mechanism
CPT/HCPCS: 36415; 52240; 74420; 80053; 82962; 85027; 88305; A4217; C1758; J0690; J2370; J2405; J2704; J3010; J7030; Q9967; U0003

== ENCOUNTER 2021-01-07 10:22 | Day surgery (SDC) | payer MEDICARE ==
[2021-01-05 13:25] LABS: Hematocrit 33.8 % (35.5-45.6); Hemoglobin 10.9 gm/dl (11.8-15.2); Mean Corpuscular HGB Conc 32 % (32-34); Mean Corpuscular Volume 84 fl (84-94); Platelet Count 222 K/mm3 (140-440); Red Blood Count 4.02 M/mm3 (3.65-5.03); Red Cell Distribution Width 18.6 % (13.2-15.2)
[2021-01-05 14:14] LABS: Alanine Aminotransferase 14 units/L (7-56); BUN/Creatinine Ratio 16; Blood Urea Nitrogen 18 mg/dL (9-20); Calcium 9.5 mg/dL (8.4-10.2); Hemolysis Index 17
--- NOTE | 2021-01-05 16:31 | Anesthesia Consultation ---
Anesthesia Consult and Med Hx Date of service: 01/07/21 - Airway Anesthetic Teeth Evaluation: Dentures, Edentulous ROM Head & Neck: Adequate Mental/Hyoid Distance: Adequate Mallampati Class: Class II Intubation Access Assessment: Good - Pre-Operative Health Status ASA Pre-Surgery Classification: ASA3 Proposed Anesthetic Plan: General - Pulmonary Hx Smoking: Yes (STOPPED X 60 YRS) Hx Respiratory Symptoms: No Hx Sleep Apnea: No (DUNCAN PRE SCREEN HIGH RISK ) - Cardiovascular System Hx Hypertension: Yes (+Cardiac clearance) Hx Coronary Artery Disease: Yes (CABG x3 (2013), L CEA 6 months ago. R CEA last year) Hx Heart Attack/AMI: No (recent stress test negative-see cardiac records. EF 52%) Hx Angina: No Hx Percutaneous Transluminal Coronary Angioplasty (PTCA): Yes (>10 yrs ago) Hx Cardia Arrhythmia: No Hx Valvular Heart Disease: Yes (Aortic valve replacement (2013)) Hx Peripheral Vascular Disease: Yes (VARICOSITIES OF LEGS) - Central Nervous System CVA: No Hx Back Pain: Yes Hx Psychiatric Problems: No - Gastrointestinal Hx Gastroesophageal Reflux Disease: Yes (diet controlled) - Endocrine Hx Renal Disease: Yes (kidney stones, h/o bladder CA, prostate CA) Hx Liver Disease: No Hx Insulin Dependent Diabetes: Yes Hx Thyroid Disease: No - Hematic Hx Anemia: Yes - Other Systems Hx Alcohol Use: No Hx Substance Use: No Hx Cancer: Yes (hx bladder ca, Prostate CA (2008) ) Hx Obesity: No - Additional Comments Anesthesia Medical History Comments: Here multiple times; last 02/2020
[~2021-01-07 10:22] MED LIST changes: +WATER FOR IRRIG STERILE 1,500 ML BOTTLE IR ONE; +WATER FOR IRRIG STERILE 2000 ML IR ONE
--- NOTE | 2021-01-07 10:51 | Anesthesia Day of Surgery ---
Anesthesia Day of Surgery - Day of Surgery Patient Examined: Yes Patient H&P Reviewed: Yes Patient is NPO: Yes Cardiac Clearance: Yes
[2021-01-07] MEDS ORDERED: HYDROmorphone 1 MG/1 ML INJ IV PRN ×2 (11:30)
[2021-01-07] MEDS ORDERED: ONDANSETRON 4 MG/2 ML INJ IV PRN (11:30)
[2021-01-07] MEDS ORDERED: ceFAZolin/STERILE WATER 2 GM/20 ML SYRINGE IV NR (12:00)
[2021-01-07] MEDS ORDERED: propofoL 200 MG/20 ML VIAL IV ONE (12:06)
[2021-01-07] MEDS ORDERED: HYDROmorphone 1 MG/1 ML INJ ONE (12:06)
[2021-01-07] MEDS ORDERED: LIDOCAINE MPF (2%) 20 MG/1 ML VIAL 5 ML ONE (12:35)
[2021-01-07] MEDS ORDERED: PHENYLEPHRINE/NS 1,000 MCG/10 ML SYRINGE (OR USE) IV ONE (12:47)
[2021-01-07] MEDS ORDERED: WATER FOR IRRIG STERILE 1,500 ML BOTTLE IR ONE (12:52)
[2021-01-07] MEDS ORDERED: WATER FOR IRRIG STERILE 2000 ML IR ONE (12:52)
[2021-01-07] MEDS ORDERED: ONDANSETRON 4 MG/2 ML INJ ONE (13:24)
--- NOTE | 2021-01-07 13:48 | Post Operative Note ---
Date of procedure: 01/07/21 Pre-op diagnosis: bladder cancer Post-op diagnosis: same Procedure: cysto biopsies Anesthesia: GETA Surgeon: ANTONIO MORAES Estimated blood loss: none Pathology: list (bladder) Specimen disposition: to lab Condition: stable Disposition: PACU
--- NOTE | 2021-01-07 13:50 | Discharge Summary ---
Short Stay Discharge Plan Activity: other (no straining ) Weight Bearing Status: Full Weight Bearing Diet: low fat, low cholesterol, low salt Special Instructions: other (inc fluids ) Follow up with: JUANA GRIFFIN JR, MD [Primary Care Provider] - 7 Days ANTONIO MORAES MD [Staff Physician] - 01/12/21
--- NOTE | 2021-01-07 14:08 | Operative Report ---
DATE OF SURGERY: 01/07/2021 PREOPERATIVE DIAGNOSES: History of bladder cancer, erythematous areas. POSTOPERATIVE DIAGNOSES: History of bladder cancer, erythematous areas. PROCEDURES: Cystoscopy, diffuse biopsies and minimal dilatation of bladder neck. SURGEON: Blair Coleman MD ANESTHESIA: General. FINDINGS: This is a gentleman with a history of prostate cancer, history of previous radiation and seed implantation. He had multifocal bladder tumors, which were low-grade superficial. He now presents for followup cystoscopy. DESCRIPTION OF PROCEDURE: The patient was brought to the operating room and placed on the operating table. Following induction of anesthesia, placed in lithotomy position, prepped and draped in usual sterile fashion. Bladder neck was slightly narrowed. We entered the bladder. There were some old scars and some erythematous areas. No papillary lesions were noted of significance. There is national shortage of cone tips. We did not want to manipulate too much the orifices. There were no tumors around the orifices. There were no tumors seen, just some erythema, which multifocal biopsies were done. Area was cauterized. The patient tolerated the procedure well and brought to recovery in stable condition. TID: [id number] RECEIPT: [id number] CONNIE/YOLY
--- NOTE | 2021-01-07 15:10 | XRay Report ---
XR abdomen 1V ap Technique: Intraoperative fluoroscopic guidance was provided. Fluoroscopy time: 0.1 minutes. Fluoroscopy images: 2. Findings/Impression: Intraoperative fluoroscopic guidance for cystogram/TURBT. Please see procedure r eport for further details. Signer Name: Zay Zabala MD Signed: 01/07/2021 3:02 PM Workstation Name: [id number]
[2021-01-07 19:22] VITALS: BP 159/88
== END 2021-01-07 15:10 | disposition home or self-care (01) ==
LOC: OR 10:22
PROVIDERS: ATTEND Urology
DX: N32.89 Other specified disorders of bladder (principal); N32.0 Bladder-neck obstruction; N30.20 Other chronic cystitis without hematuria; Z20.822 Contact with and (suspected) exposure to COVID-19; I10 Essential (primary) hypertension; I25.10 Atherosclerotic heart disease of native coronary artery without angina pectoris; I73.9 Peripheral vascular disease, unspecified; K21.9 Gastro-esophageal reflux disease without esophagitis; E11.9 Type 2 diabetes mellitus without complications; Z87.442 Personal history of urinary calculi; Z85.46 Personal history of malignant neoplasm of prostate; Z85.51 Personal history of malignant neoplasm of bladder; Z92.3 Personal history of irradiation; Z87.891 Personal history of nicotine dependence; Z79.4 Long term (current) use of insulin; Z79.899 Other long term (current) drug therapy; Z79.82 Long term (current) use of aspirin; Z95.1 Presence of aortocoronary bypass graft; Z95.5 Presence of coronary angioplasty implant and graft; Z95.4 Presence of other heart-valve replacement; Z98.890 Other specified postprocedural states
CPT/HCPCS: 36415; 52204; 74018; 80053; 82962; 85027; 88305; A4217; J0690; J1170; J2370; J2405; J2704; J7120; U0003

== ENCOUNTER 2021-05-27 10:32 | Day surgery (SDC) | payer MEDICARE ==
--- NOTE | 2021-05-21 09:43 | Anesthesia Consultation ---
Anesthesia Consult and Med Hx Date of service: 05/21/21 - Airway Anesthetic Teeth Evaluation: Dentures (upper and lower) ROM Head & Neck: Adequate Mental/Hyoid Distance: Adequate Mallampati Class: Class III Intubation Access Assessment: Possibly Difficult - Pre-Operative Health Status ASA Pre-Surgery Classification: ASA3 Proposed Anesthetic Plan: General - Pulmonary Hx Smoking: Yes (STOPPED X 60 YRS) Hx Respiratory Symptoms: No SOB: Yes (SOB WITH ACTIVITY) Hx Sleep Apnea: No (DUNCAN PRE SCREEN HIGH RISK -SNORES) - Cardiovascular System Hx Hypertension: Yes Hx Coronary Artery Disease: Yes (CABG x3 (2013), ) Hx Heart Attack/AMI: No (recent stress test negative-see cardiac records. EF 52%) Hx Angina: No Hx Percutaneous Transluminal Coronary Angioplasty (PTCA): Yes (>10 yrs ago) Hx Cardia Arrhythmia: No Hx Valvular Heart Disease: Yes (Aortic valve replacement (2013)) Hx Peripheral Vascular Disease: Yes (carotid arteriey stenosis, VARICOSITIES OF LEGS) - Central Nervous System CVA: No Hx Back Pain: Yes (knee arthritis, bilateral knee pain) Hx Psychiatric Problems: No - Gastrointestinal Hx Gastroesophageal Reflux Disease: Yes (diet controlled) - Endocrine Hx Renal Disease: Yes (kidney stones, h/o bladder CA, prostate CA) Hx Liver Disease: No Hx Insulin Dependent Diabetes: Yes Hx Thyroid Disease: No - Hematic Hx Anemia: Yes Hx Sickle Cell Disease: No - Other Systems Hx Alcohol Use: No Hx Substance Use: No Hx Cancer: Yes (hx bladder ca, Prostate CA ) Hx Obesity: Yes
[2021-05-21 09:52] LABS: Hematocrit 32.4 % (35.5-45.6); Hemoglobin 10.7 gm/dl (11.8-15.2); Mean Corpuscular HGB Conc 33 % (32-34); Mean Corpuscular Volume 86 fl (84-94); Platelet Count 214 K/mm3 (140-440); Red Blood Count 3.76 M/mm3 (3.65-5.03); Red Cell Distribution Width 17.8 % (13.2-15.2)
[2021-05-21 10:19] LABS: Albumin 4.1 g/dL (3.9-5); Calcium 9.7 mg/dL (8.4-10.2)
[~2021-05-27 10:32] MED LIST changes: +FAMOTIDINE 20 MG/2 ML INJ IV NR; -LACTATED RINGERS 1,000 ML IV SCH; +SODIUM CHLORIDE 0.9% 1000 ML 1,000 ML IV SCH; -WATER FOR IRRIG STERILE 1,500 ML BOTTLE IR ONE; -WATER FOR IRRIG STERILE 2000 ML IR ONE
[2021-05-27] MEDS ORDERED: ceFAZolin/Water 2 GM/20 ML 2 GM/20 ML SYRINGE IV ONE (11:51)
[2021-05-27] MEDS ORDERED: ceFAZolin/Water 2 GM/20 ML 2 GM/20 ML SYRINGE IV NR (13:00)
--- NOTE | 2021-05-27 13:09 | Anesthesia Day of Surgery ---
Anesthesia Day of Surgery - Day of Surgery Patient Examined: Yes Patient H&P Reviewed: Yes Patient is NPO: Yes
[2021-05-27] MEDS ORDERED: HYDROcodone/ACETAMINOPHEN 5-325 MG TAB PO PRN (13:15)
[2021-05-27] MEDS ORDERED: fentaNYL 100 MCG/2 ML INJ IV PRN (13:15)
[2021-05-27] MEDS ORDERED: propofoL 200 MG/20 ML VIAL IV ONE (13:23)
[2021-05-27] MEDS ORDERED: FAMOTIDINE 20 MG/2 ML INJ IV ONE (13:23)
[2021-05-27] MEDS ORDERED: fentaNYL 100 MCG/2 ML INJ ONE ×2 (13:24→13:49)
[2021-05-27] MEDS ORDERED: FAMOTIDINE 20 MG/2 ML INJ IV NR (13:30)
[2021-05-27] MEDS ORDERED: VASOPRESSIN 20 UNIT/1 ML INJ ONE (14:07)
[2021-05-27] MEDS ORDERED: ONDANSETRON 4 MG/2 ML INJ ONE (14:24)
[2021-05-27] MEDS ORDERED: dexAMETHasone 20 MG/5 ML VIAL ONE (14:24)
[2021-05-27] MEDS ORDERED: LIDOCAINE MPF (2%) 20 MG/1 ML VIAL 5 ML ONE (14:24)
[2021-05-27] MEDS ORDERED: MANNITOL/SORBITOL SOLUTION 3,000 ML IRRIG.SOLN IR ONE (14:30)
--- NOTE | 2021-05-27 14:42 | Post Operative Note ---
Date of procedure: 05/27/21 Pre-op diagnosis: bladder cancer Post-op diagnosis: same Findings: 2 pipillary tumors Procedure: cysto turbt Anesthesia: GETA Surgeon: ANTONIO MORAES Pathology: list (bt) Specimen disposition: to lab Condition: stable Disposition: PACU
--- NOTE | 2021-05-27 14:44 | Discharge Summary ---
Short Stay Discharge Plan Activity: other (no straining ) Weight Bearing Status: Full Weight Bearing Diet: low fat, low cholesterol, low salt Special Instructions: other (inc fluids ) Durable Medical Equipment Needed Upon Discharge: other (blackmon ) Follow up with: JUANA GRIFFIN JR, MD [Primary Care Provider] - 7 Days ANTONIO MORAES MD [Staff Physician] - 06/08/21
--- NOTE | 2021-05-27 14:56 | Operative Report ---
DATE OF SURGERY: 05/27/2021 PREOPERATIVE DIAGNOSIS: Recurrent bladder tumors. POSTOPERATIVE DIAGNOSIS: Recurrent bladder tumors. PROCEDURES: Cystoscopy, resection of tumors and fulguration. SURGEON: Blair Coleman MD ANESTHESIA: General. FINDINGS: This is a gentleman with history of multiple papillary tumors. He was found to have one at the anterior towards the dome and one on the left lateral wall. Now presents for treatment. DESCRIPTION OF PROCEDURE: The patient was brought to operating room and placed on the operating table. Following induction of anesthesia, placed in lithotomy position, prepped and draped in usual sterile fashion. Cystourethroscopy showed these tumors to be difficult because they were anterior, left lateral and right at the dome. With pressure, we were able to see the tumor. The one at the dome was small. We were able to extract it with a large grasper and cauterize it. We did see some fat. The one on the left, we resected. The patient tolerated the procedure well and brought to recovery room in stable condition. No significant bleeding. Area was cauterized well away from the trigone. We did not need to do a retrograde again. He was brought to recovery room with Fatima draining clear urine in stable condition. TID: [id number] RECEIPT: [id number] CONNIE/AL
--- NOTE | 2021-05-27 16:09 | XRay Report ---
XR abdomen 1V ap Technique: Intraoperative fluoroscopic guidance was provided. Fluoroscopy time: 0.02 seconds. Fluoroscopy images: 1. Findings/Impression: Intraoperative fluoroscopic guidance for Dr. Coleman. Please see procedure repo rt for further details. Signer Name: Zay Zabala MD Signed: 05/27/2021 4:04 PM Workstation Name: [id number]
[2021-05-27 16:27] VITALS: BP 144/73
== END 2021-05-27 16:15 | disposition home or self-care (01) ==
LOC: OR 10:32
PROVIDERS: ATTEND Urology
DX: C67.3 Malignant neoplasm of anterior wall of bladder (principal); C67.2 Malignant neoplasm of lateral wall of bladder; C67.4 Malignant neoplasm of posterior wall of bladder; E78.00 Pure hypercholesterolemia, unspecified; I10 Essential (primary) hypertension; K21.9 Gastro-esophageal reflux disease without esophagitis; E66.9 Obesity, unspecified; M19.90 Unspecified osteoarthritis, unspecified site; E11.9 Type 2 diabetes mellitus without complications; D64.9 Anemia, unspecified; Z20.822 Contact with and (suspected) exposure to COVID-19; Z79.899 Other long term (current) drug therapy; Z87.891 Personal history of nicotine dependence; Z79.82 Long term (current) use of aspirin; Z79.4 Long term (current) use of insulin; Z98.41 Cataract extraction status, right eye; Z98.42 Cataract extraction status, left eye; Z90.49 Acquired absence of other specified parts of digestive tract; Z98.890 Other specified postprocedural states; Z95.1 Presence of aortocoronary bypass graft
CPT/HCPCS: 36415; 52224; 74018; 80053; 82962; 85027; 88305; J0690; J1100; J2405; J2704; J3010; J3490; J7030; Q9967; U0003; J7120; Q0162

== ENCOUNTER 2021-11-04 09:45 | Day surgery (SDC) | payer MEDICARE ==
[2021-11-03 09:37] LABS: Hematocrit 35.2 % (35.5-45.6); Mean Corpuscular HGB Conc 31 % (32-34); Mean Corpuscular Volume 91 fl (84-94); Platelet Count 208 K/mm3 (140-440); Red Blood Count 3.88 M/mm3 (3.65-5.03); Red Cell Distribution Width 17.8 % (13.2-15.2)
[2021-11-03 09:57] LABS: Alanine Aminotransferase 11 units/L (7-56); Albumin 3.8 g/dL (3.9-5); BUN/Creatinine Ratio 18; Blood Urea Nitrogen 21 mg/dL (9-20); Hemolysis Index 32
[~2021-11-04 09:45] MED LIST changes: -FAMOTIDINE 20 MG/2 ML INJ IV NR
--- NOTE | 2021-11-04 10:33 | Anesthesia Day of Surgery ---
Anesthesia Day of Surgery - Day of Surgery Patient Examined: Yes Patient H&P Reviewed: Yes Patient is NPO: Yes
--- NOTE | 2021-11-04 10:33 | Anesthesia Consultation ---
Anesthesia Consult and Med Hx Date of service: 11/04/21 - Airway Anesthetic Teeth Evaluation: Dentures (upper and lower) ROM Head & Neck: Adequate Mental/Hyoid Distance: Adequate Mallampati Class: Class III Intubation Access Assessment: Possibly Difficult (previous LMA 4) - Pre-Operative Health Status ASA Pre-Surgery Classification: ASA3 Proposed Anesthetic Plan: General - Pulmonary Hx Smoking: Yes (remote smoking hx) Hx Respiratory Symptoms: No SOB: Yes (chronic MENDOZA; unchanged) - Cardiovascular System Hx Hypertension: Yes Hx Coronary Artery Disease: Yes (3v CABG in 2013) Hx Heart Attack/AMI: No Hx Percutaneous Transluminal Coronary Angioplasty (PTCA): Yes (>10 yrs ago; last dose ASA 11/02/21) Hx Cardia Arrhythmia: No Hx Valvular Heart Disease: Yes (AVR 2013) Hx Peripheral Vascular Disease: Yes (VIKRAM) - Central Nervous System CVA: No - Gastrointestinal Hx Gastroesophageal Reflux Disease: Yes (asymptomatic today) - Endocrine Hx Renal Disease: No Hx Liver Disease: No Hx Insulin Dependent Diabetes: Yes Hx Thyroid Disease: No - Other Systems Hx Cancer: Yes (hx bladder ca, Prostate CA ) Hx Obesity: Yes (BMI 31) - Additional Comments Anesthesia Medical History Comments: No hx anesthetic complications. Had similar procedure under [place] 05/2021. No significant change in health in the interim.
[2021-11-04] MEDS ORDERED: propofoL 200 MG/20 ML VIAL IV ONE ×2 (12:01→13:38)
[2021-11-04] MEDS ORDERED: fentaNYL 100 MCG/2 ML INJ ONE ×2 (12:01→13:34)
[2021-11-04] MEDS ORDERED: MIDAZOLAM 2 MG/2 ML INJ IV NR (12:01)
[2021-11-04] MEDS ORDERED: LIDOCAINE MPF (2%) 20 MG/1 ML VIAL 5 ML ONE (12:01)
[2021-11-04] MEDS ORDERED: ONDANSETRON 4 MG/2 ML INJ ONE (12:01)
[2021-11-04] MEDS ORDERED: MIDAZOLAM 2 MG/2 ML INJ ONE (12:03)
[2021-11-04] MEDS ORDERED: ceFAZolin/Water 2 GM/20 ML 2 GM/20 ML SYRINGE IV ONE (12:34)
[2021-11-04] MEDS ORDERED: ePHEDrine SULFATE 50 MG/1 ML INJ ONE (13:17)
[2021-11-04] MEDS ORDERED: MANNITOL/SORBITOL SOLUTION 3,000 ML IRRIG.SOLN IR ONE (13:31)
[2021-11-04] MEDS ORDERED: IOHEXOL 300 MG/ML 100ML IV ONE (13:44)
[2021-11-04] MEDS ORDERED: FUROSEMIDE 40 MG/4 ML INJ ONE (13:53)
[2021-11-04] MEDS ORDERED: ESMOLOL 100 MG/10 ML INJ IV ONE (14:04)
--- NOTE | 2021-11-04 14:24 | Post Operative Note ---
Date of procedure: 11/04/21 Pre-op diagnosis: bladder ca Post-op diagnosis: same Findings: multifocal tcc Procedure: cyst rpg turbt excisons Anesthesia: GETA Surgeon: ANTONIO MORAES Estimated blood loss: minimal Pathology: list (bladder) Specimen disposition: to lab
--- NOTE | 2021-11-04 14:25 | Discharge Summary ---
Short Stay Discharge Plan Activity: other (no strAINING ) Weight Bearing Status: Full Weight Bearing Diet: low fat, low cholesterol, low salt Special Instructions: other (inc fluids ) Durable Medical Equipment Needed Upon Discharge: other (home with cath x 4 days ) Follow up with: JUANA GRIFFIN JR, MD [Primary Care Provider] - 7 Days ANTONIO MORAES MD [Staff Physician] - 11/10/21
[2021-11-04] MEDS ORDERED: HYDROcodone/ACETAMINOPHEN 5-325 MG TAB PO PRN (15:20)
[2021-11-04 16:17] VITALS: BP 120/80
--- NOTE | 2021-11-04 16:28 | Fluoroscopy Report ---
INTRAOPERATIVE FLUOROSCOPY: RETROGRADE UROGRAPHY INDICATION: BILAT RPG CYSTO TURBT. TECHNIQUE: Intraoperative spot images were obtained during the procedure. FINDINGS: There is expected opacification of the ureters and collecting systems. Please see the operative repor t for further details. Fluoroscopy Time: 34 seconds. Fluoroscopy Images: 6. Signer Name: Malachi Singh MD Signed: 11/04/2021 4:23 PM Workstation Name: [email or web address]
--- NOTE | 2021-11-04 17:23 | Operative Report ---
DATE OF SURGERY: 11/04/2021 PREOPERATIVE DIAGNOSES: Multifocal superficial bladder tumors, significant comorbidities. POSTOPERATIVE DIAGNOSES: Multifocal superficial bladder tumors, significant comorbidities. PROCEDURES: Cystoscopy, excision and resection of bladder tumors transurethrally. SURGEON: Blair Coleman M.D. ANESTHESIA: General. DESCRIPTION OF PROCEDURE: This is a gentleman with multifocal bladder tumors that keep recurring. There is 2 small tumors at the bladder neck, which were resected after we entered the bladder with the visual obturator. Once these were resected, there was a tumor approximately 1 cm towards the dome, which was excised and 2 other ones towards the dome and posterior wall, which were excised and cauterized. The patient tolerated the procedure well. There was no bleeding. We had to relax a little bit and put some pressure on the dome because this was under LMA to get access to cauterize. Retrograde showed delicate collecting system. The patient tolerated the procedure well. No significant complication, brought to recovery in stable condition. Fatima catheter draining clear. TID: [id number] RECEIPT: [id number] CONNIE/KEN
== END 2021-11-04 15:45 | disposition home or self-care (01) ==
LOC: OR 09:45
PROVIDERS: ATTEND Urology
DX: C67.1 Malignant neoplasm of dome of bladder (principal); C67.4 Malignant neoplasm of posterior wall of bladder; I25.10 Atherosclerotic heart disease of native coronary artery without angina pectoris; E78.00 Pure hypercholesterolemia, unspecified; I10 Essential (primary) hypertension; K21.9 Gastro-esophageal reflux disease without esophagitis; E66.9 Obesity, unspecified; D64.9 Anemia, unspecified; M19.90 Unspecified osteoarthritis, unspecified site; E11.9 Type 2 diabetes mellitus without complications; Z79.899 Other long term (current) drug therapy; Z79.4 Long term (current) use of insulin; Z79.82 Long term (current) use of aspirin; Z87.891 Personal history of nicotine dependence; Z98.41 Cataract extraction status, right eye; Z98.42 Cataract extraction status, left eye; Z95.1 Presence of aortocoronary bypass graft; Z95.2 Presence of prosthetic heart valve; Z90.49 Acquired absence of other specified parts of digestive tract; Z68.31 Body mass index [BMI] 31.0-31.9, adult; Z85.46 Personal history of malignant neoplasm of prostate; Z20.822 Contact with and (suspected) exposure to COVID-19
CPT/HCPCS: 36415; 52234; 74420; 80053; 82962; 85027; 88305; J0690; J1940; J2250; J2405; J2704; J3010; J3490; J7030; U0003